=== PATIENT | male | born 1970 | race Caucasian/White ===

== ENCOUNTER 2020-01-25 13:56 | Observation (INO) | payer OTHER | END 2020-01-27 18:30 | disposition home or self-care (01) | LOC: M.ERS 13:56 → M.TBA-ER 17:29 → M.2W 22:42 | PROVIDERS: ADMIT Internal Medicine | DX: I25.110 Atherosclerotic heart disease of native coronary artery with unstable angina pectoris (principal); Z20.828 Contact with and (suspected) exposure to other viral communicable diseases; I25.2 Old myocardial infarction; Z91.14 Patient's other noncompliance with medication regimen; F17.210 Nicotine dependence, cigarettes, uncomplicated; I10 Essential (primary) hypertension ==